=== PATIENT | male | born 1970 | race Caucasian/White ===

== ENCOUNTER 2020-08-07 07:59 | Day surgery (SDC) | payer BC ==
[2020-08-02 14:40] VITALS: BMI 32.3
[~2020-08-07 07:59] MED LIST: LACTATED RINGERS 1,000 ML IV SCH
[2020-08-07 08:22] VITALS: TEMP 96.9
[2020-08-07] MEDS ORDERED: PROPOFOL 10 MG/ML 20 ML VIAL IV ONE (08:37)
[2020-08-07] MEDS ORDERED: LIDOCAINE 1% INJ 10MG/ML (20 ML MDV) ONE (08:37)
--- NOTE | 2020-08-07 09:19 | P.PCN ---
Date of Procedure: 08/07/20 Description of Procedure: BRIEF HISTORY: Patient is a 50-year-old male presenting for outpatient colonoscopy for screening for malignant neoplasm of the colon. He reports last colonoscopy was approximately 9 years ago when his uncle was diagnosed with colon cancer. No change in bowel habits or blood per rectum. PROCEDURE PERFORMED: Colonoscopy with polypectomy. PREOPERATIVE DIAGNOSIS: Screening for malignant neoplasm colon, last colonoscopy approximately 9 years ago per patient report. ESTIMATED BLOOD LOSS: Minimal. IV sedation per Anesthesia. PROCEDURE: After informed consent was obtained, the patient, was brought into the endoscopy unit. IV sedation was administered by Anesthesia under continuous monitoring. Digital rectal examination was normal. Initially the Olympus CF-190 flexible video colonoscope was then inserted in the rectum, gradually advanced into the cecum without any difficulty. Careful examination was performed as the scope was gradually being withdrawn. Ileocecal valve and the appendiceal orifice were visualized and appeared normal. Prep was excellent. Mucosa of the cecum, ascending colon, transverse colon, descending colon, sigmoid colon, and rectum appeared normal. 2 diminutive polyps measuring 1-2 mm in size removed from the ascending colon and transverse colon with cold forceps polypectomy. 13 mm rectal polyp removed with hot snare polypectomy. Retroflexion was performed in the rectum and no lesions were seen. The patient tolerated the procedure well. IMPRESSION: Large rectal polyp removed with hot snare polypectomy. 2 diminutive polyps removed with cold forcep polypectomy from the ascending colon and transverse colon. RECOMMENDATIONS: Findings of this examination were discussed with the patient.. Okay to resume diet. Okay to resume medications. Await pathology from polypectomy. Recommend repeat colonoscopy in 3 years for high risk colon polyps pending pathology from polypectomy
[2020-08-07 09:31] VITALS: BP 117/81; PULSE 82; RESP 18
== END 2020-08-07 09:50 | disposition home or self-care (01) ==
LOC: ORWHC2ENDO 07:59
PROVIDERS: ATTEND Internal Medicine
DX: Z12.11 Encounter for screening for malignant neoplasm of colon (principal); D12.8 Benign neoplasm of rectum; K63.5 Polyp of colon; Z80.0 Family history of malignant neoplasm of digestive organs; Z79.899 Other long term (current) drug therapy; Z98.890 Other specified postprocedural states; E78.5 Hyperlipidemia, unspecified; K21.9 Gastro-esophageal reflux disease without esophagitis
CPT/HCPCS: 88305; 45380; 45385; J2001; J2704